=== PATIENT | female | born 1955 | race African-American/Black ===

== ENCOUNTER 2022-10-28 08:51 | Inpatient (IN) | payer MEDICARE, MEDICAID ==
[2022-10-28] VITALS (30 sets, daily range): BP systolic 22–158; BP diastolic 14–109
[~2022-10-28] VITALS: Ht 172.7 cm; Wt 129.3 kg
[~2022-10-28 08:51] MED LIST: ABILIFY PO; AMLO2.5T45 PO; ATOR20TA65 PO; BENADRYL PO; CYAN-50 PO; CYCLOBENZAPRINE; DEXT15DR5 EACHEYE; DILANTIN PO; FUROSEMIDE PO; IBUPROFEN; LOSARTAN PO; METF-414 PO; OMEPRAZOLE; PANT40TA51 PO; POTASSIUM PO; PYRI100T17 PO; XALAO EACHEYE; XALATAN
[2022-10-28] MEDS ORDERED: SODIUM CHLORIDE 0.9% 1000ML BAG (SEPSIS BOLUS) IV ONE (09:15)
[2022-10-28 09:57] LABS: HEMATOCRIT. 26.7 % (36.0-48.0); HEMOGLOBIN. 8.3 g/dL (12.0-16.0); MEAN CORPUSCULAR HEMOGLOBIN 19.4 pg (28.0-32.0); MEAN CORPUSCULAR VOLUME 62.5 fL (81.0-99.0); MEAN PLATELET VOLUME 8.3 fl (7.4-10.4); PLATELET 352 x1000/uL (130-400); RED BLOOD CELL COUNT 4.28 mill/uL (4.2-5.4); RED CELL DISTRIBUTION WIDTH 19.2 % (11.6-14.6)
[2022-10-28 09:58] LABS: CHLORIDE 102 mEq/L (98-107)
[2022-10-28 10:05] LABS: INR 1.1
[2022-10-28 10:54] LABS: PLATELET ESTIMATE NORMAL
[2022-10-28] MEDS ORDERED: PIPERACILLIN/TAZ 3.375G PREMIX 50 ML IV ONE (11:00)
[2022-10-28] MEDS ORDERED: VANCOMYCIN 1G PREMIX 200 ML IV ONE (11:00)
[2022-10-28] MEDS ORDERED: PIPERACILLIN/TAZOBACTAM 3.375G in DEXT 5% WATER 50ML IV NR (11:30)
[2022-10-28 12:43] LABS: CLARITY URINE CLOUDY (CLEAR); COLOR URINE DARK YELLOW (YELLOW); KETONES URINE NEGATIVE (NEGATIVE); LEUKOCYTE ESTERASE URINE 2+ (NEGATIVE); NITRITE URINE NEGATIVE (NEGATIVE); OCCULT BLOOD URINE 3+ (NEGATIVE); PROTEIN URINE 1+ (NEGATIVE); SPECIFIC GRAVITY URINE 1.019 (1.005-1.030)
[2022-10-28] MEDS ORDERED: DEXTROSE 50% WATER 50ML SYRINGE IV PRN (13:00)
[2022-10-28] MEDS ORDERED: VANCOMYCIN 1G PREMIX 200 ML IV SCH (13:00)
[2022-10-28] MEDS ORDERED: ONDANSETRON HCL 4MG/2ML INJ IV PRN (13:00)
[2022-10-28] MEDS ORDERED: ACETAMINOPHEN 325MG TABLET PO PRN (13:00)
[2022-10-28] MEDS ORDERED: IPRATROPIUM BROMIDE (0.02%) 0.5MG/2.5ML NEB HHN PRN (13:00)
[2022-10-28] MEDS ORDERED: NOREPINEPHRINE 8MG/250ML PMX 250 ML IV ONE (13:15)
[2022-10-28] MEDS ORDERED: NOREPINEPHRINE 8 MG in DEXTROSE 5% WATER 250 ML IV NR (13:30)
[2022-10-28] MEDS: DIGOXIN 500MCG/2ML AMP IV SCH ×2 (15:07→20:30)
[2022-10-28 15:21] LABS: BG BASE EXCESS -9.5 mmol/L (-2.0-2.0); BG CARBOXYHEMOGLOBIN 0.1 % (0.5-1.5); BG DEOXYHEMOGLOBIN 3.3 % (0.0-5.0); BG FRACTION INSPIRED OXYGEN 28; BG HCO3 ACT 14.3 mmol/L (22.0-26.0); BG METHEMOGLOBIN 0.3 % (0.0-1.5); BG OXYGEN SATURATION 96.7 % (92.0-98.5); BG OXYHEMOGLOBIN 96.3 % (94.0-97.0); BG PCO2 24.8 mmHg (35.0-45.0); BG PH 7.379 (7.350-7.450); BG PO2 98.7 mmHg (75.0-100.0); BG SAMPLE SITE LEFT RADIAL; BG TOTAL HEMOGLOBIN 9.3 g/dL (12.0-18.0); BG VENT MODE NASAL CANNULA
[2022-10-28] MEDS: PIPERACILLIN/TAZOBACTAM 3.375 G in DEXTROSE 5% WATER 50 ML IV SCH ×2 (16:00→23:56)
[2022-10-28] MEDS: BLOOD SUGAR DIAGNOSTIC STRIP TEST SCH ×3 (16:30→21:15)
[2022-10-28] MEDS ORDERED: DIGOXIN 500MCG/2ML AMP IV SCH (16:45)
[2022-10-28] MEDS: MIDODRINE HCL 5MG TABLET PO SCH (17:00)
[2022-10-28] MEDS: PHENYLEPHRINE 50 MG in DEXT 5% WATER 245 ML IV PRN ×2 (17:42→23:56)
[2022-10-28] MEDS: INSULIN LISPRO 100 UNITS/ML SUBCUT SCH ×3 (17:55→21:18)
[2022-10-28] MEDS ORDERED: METOPROLOL TARTRATE 5MG/5ML VIAL IV PRN (21:30)
[2022-10-28] MEDS ORDERED: AMIODARONE HCL 900 MG in DEXT 5% WATER 482 ML IV PRN (21:30)
[2022-10-28] MEDS: SODIUM CHLORIDE 0.9% 1,000 ML IV SCH (23:04)
[2022-10-29] VITALS (91 sets, daily range): BP systolic 64–132; BP diastolic 22–101
[2022-10-29 03:18] LABS: BG BASE EXCESS -5.1 mmol/L (-2.0-2.0); BG CARBOXYHEMOGLOBIN 0.5 % (0.5-1.5); BG DEOXYHEMOGLOBIN 2.7 % (0.0-5.0); BG FRACTION INSPIRED OXYGEN 28; BG HCO3 ACT 17.2 mmol/L (22.0-26.0); BG METHEMOGLOBIN 0.7 % (0.0-1.5); BG OXYGEN SATURATION 97.3 % (92.0-98.5); BG OXYHEMOGLOBIN 96.1 % (94.0-97.0); BG PCO2 22.9 mmHg (35.0-45.0); BG PH 7.494 (7.350-7.450); BG PO2 93.1 mmHg (75.0-100.0); BG SAMPLE SITE RIGHT RADIAL; BG TOTAL HEMOGLOBIN 8.2 g/dL (12.0-18.0); BG VENT MODE NASAL CANNULA
[2022-10-29 05:15] LABS: BASOPHILS % 0.1 % (0.0-2.0); EOSINOPHILS % 0.1 % (0.0-5.0); HEMATOCRIT. 22.9 % (36.0-48.0); HEMOGLOBIN. 7.4 g/dL (12.0-16.0); LYMPHOCYTES % 14.2 % (20.0-50.0); MEAN CORPUSCULAR HEMOGLOBIN 20.1 pg (28.0-32.0); MEAN PLATELET VOLUME 8.4 fl (7.4-10.4); MONOCYTES % 5.5 % (2.0-8.0); NEUTROPHILS % 80.1 % (40.0-76.0); PLATELET 339 x1000/uL (130-400); RED CELL DISTRIBUTION WIDTH 18.8 % (11.6-14.6)
[2022-10-29] MEDS: SODIUM CHLORIDE 0.9% 1,000 ML IV SCH ×2 (05:41→13:41)
[2022-10-29] MEDS: INSULIN LISPRO 100 UNITS/ML SUBCUT SCH ×4 (06:15→21:58)
[2022-10-29] MEDS: BLOOD SUGAR DIAGNOSTIC STRIP TEST SCH ×4 (06:18→21:52)
[2022-10-29] MEDS: PHENYLEPHRINE 50 MG in DEXT 5% WATER 245 ML IV PRN ×2 (07:15→19:11)
[2022-10-29] MEDS ORDERED: DIGOXIN 500MCG/2ML AMP IV PRN (08:15)
[2022-10-29] MEDS ORDERED: AMIODARONE HCL 150 MG in DEXT 5% WATER 100 ML IV SCH (09:00)
[2022-10-29] MEDS ORDERED: FUROSEMIDE 40MG/4ML VIAL IVP NR (09:30)
[2022-10-29] MEDS: PIPERACILLIN/TAZOBACTAM 3.375 G in DEXTROSE 5% WATER 50 ML IV SCH ×2 (09:33→13:36)
[2022-10-29] MEDS: MIDODRINE HCL 5MG TABLET PO SCH ×3 (09:34→18:43)
[2022-10-29] MEDS: AMIODARONE HCL 900 MG in DEXT 5% WATER 482 ML IV SCH (09:53)
[2022-10-29 11:22] LABS: TOTAL IRON BINDING CAPACITY 152 ug/dL (250-450)
[2022-10-29] MEDS: VANCOMYCIN 2,000 MG in DEXT 5% WATER 500 ML IV SCH ×2 (11:34→23:12)
[2022-10-29] MEDS: DIGOXIN 500MCG/2ML AMP IV SCH (17:53)
[2022-10-30] VITALS (100 sets, daily range): BP systolic 64–149; BP diastolic 33–97
[2022-10-30] MEDS: AMIODARONE HCL 900 MG in DEXT 5% WATER 482 ML IV SCH (00:40)
[2022-10-30] MEDS: PIPERACILLIN/TAZOBACTAM 3.375 G in DEXTROSE 5% WATER 50 ML IV SCH ×4 (02:28→21:49)
[2022-10-30] MEDS: SODIUM CHLORIDE 0.9% 1,000 ML IV SCH ×2 (02:29→16:48)
[2022-10-30 05:22] LABS: BASOPHILS % 0.2 % (0.0-2.0); LYMPHOCYTES % 17.5 % (20.0-50.0); MEAN CORPUSCULAR HEMOGLOBIN 19.6 pg (28.0-32.0); MEAN CORPUSCULAR VOLUME 63.5 fL (81.0-99.0); MEAN PLATELET VOLUME 7.5 fl (7.4-10.4); NEUTROPHILS % 76.3 % (40.0-76.0); PLATELET 284 x1000/uL (130-400); RED BLOOD CELL COUNT 3.46 mill/uL (4.2-5.4)
[2022-10-30] MEDS: BLOOD SUGAR DIAGNOSTIC STRIP TEST SCH ×4 (05:54→21:46)
[2022-10-30 05:56] LABS: DIGOXIN 1.2 ng/mL (0.9-2.0)
[2022-10-30] MEDS: INSULIN LISPRO 100 UNITS/ML SUBCUT SCH ×4 (06:07→21:50)
[2022-10-30 07:10] LABS: HEMOGLOBIN. 6.8 g/dL (12.0-16.0)
[2022-10-30] MEDS: MIDODRINE HCL 5MG TABLET PO SCH ×3 (09:27→17:04)
[2022-10-30 10:09] LABS: PLATELET ESTIMATE NORMAL
[2022-10-30] MEDS: AMIODARONE HCL 200 MG TABLET PO SCH ×2 (13:34→21:49)
[2022-10-30] MEDS: GUAIFENESIN 200MG/10ML SUGAR FREE UDC PO PRN ×2 (17:04→23:44)
[2022-10-30] MEDS ORDERED: PHENYLEPHRINE 50 MG in DEXT 5% WATER 245 ML IV PRN (17:32)
[2022-10-30] MEDS ORDERED: PHENYLEPHRINE 100 MG in DEXT 5% WATER 240 ML IV PRN (17:45)
[2022-10-30] MEDS: DIGOXIN 500MCG/2ML AMP IV SCH (18:06)
[2022-10-30] MEDS ORDERED: VANCOMYCIN 750MG PREMIX 150 ML IV SCH (20:00)
[2022-10-31] VITALS (75 sets, daily range): BP systolic 85–139; BP diastolic 36–100
[2022-10-31 05:31] LABS: HEMATOCRIT. 24.6 % (36.0-48.0); HEMOGLOBIN. 7.8 g/dL (12.0-16.0); MEAN CORPUSCULAR HEMOGLOBIN 20.9 pg (28.0-32.0); MEAN CORPUSCULAR VOLUME 65.9 fL (81.0-99.0); PLATELET 238 x1000/uL (130-400); RED BLOOD CELL COUNT 3.73 mill/uL (4.2-5.4); RED CELL DISTRIBUTION WIDTH 21.6 % (11.6-14.6)
[2022-10-31] MEDS: INSULIN LISPRO 100 UNITS/ML SUBCUT SCH ×4 (05:54→21:00)
[2022-10-31] MEDS: BLOOD SUGAR DIAGNOSTIC STRIP TEST SCH ×4 (05:54→21:13)
[2022-10-31] MEDS: PIPERACILLIN/TAZOBACTAM 3.375 G in DEXTROSE 5% WATER 50 ML IV SCH ×2 (05:54→13:59)
[2022-10-31] MEDS: SODIUM CHLORIDE 0.9% 1,000 ML IV SCH ×2 (05:55→21:07)
[2022-10-31 09:28] LABS: PLATELET ESTIMATE NORMAL
[2022-10-31] MEDS: AMIODARONE HCL 200 MG TABLET PO SCH ×2 (09:32→21:06)
[2022-10-31] MEDS: MIDODRINE HCL 5MG TABLET PO SCH ×3 (09:32→17:53)
[2022-10-31] MEDS: DIGOXIN 500MCG/2ML AMP IV SCH (17:53)
[2022-10-31] MEDS: GUAIFENESIN 200MG/10ML SUGAR FREE UDC PO PRN (17:53)
[2022-10-31] MEDS: CEFTRIAXONE 2GM DUPLEX 50 ML IV SCH (19:33)
[2022-11-01] VITALS (75 sets, daily range): BP systolic 98–147; BP diastolic 39–98
[2022-11-01] MEDS: SODIUM CHLORIDE 0.9% 1,000 ML IV SCH ×2 (07:53→22:15)
[2022-11-01] MEDS: AMIODARONE HCL 200 MG TABLET PO SCH ×2 (09:19→20:43)
[2022-11-01] MEDS: MIDODRINE HCL 5MG TABLET PO SCH ×3 (09:19→17:10)
[2022-11-01] MEDS: BLOOD SUGAR DIAGNOSTIC STRIP TEST SCH ×3 (11:27→20:44)
[2022-11-01] MEDS: INSULIN LISPRO 100 UNITS/ML SUBCUT SCH ×3 (11:28→20:44)
[2022-11-01] MEDS: FUROSEMIDE 40MG/4ML VIAL IVP SCH (15:21)
[2022-11-01] MEDS: DIGOXIN 500MCG/2ML AMP IV SCH (17:10)
[2022-11-01 17:56] LABS: HEMATOCRIT 23.7 % (36.0-48.0); HEMOGLOBIN 7.4 g/dL (12.0-16.0); MEAN CORPUSCULAR HEMOGLOBIN 20.8 pg (28.0-32.0); MEAN CORPUSCULAR VOLUME 66.8 fL (81.0-99.0); PLATELET 195 x1000/uL (130-400); RED BLOOD CELL COUNT 3.55 mill/uL (4.2-5.4); RED CELL DISTRIBUTION WIDTH 21.6 % (11.6-14.6)
[2022-11-01] MEDS: CEFTRIAXONE 2GM DUPLEX 50 ML IV SCH (20:49)
[2022-11-02] VITALS (15 sets, daily range): BP systolic 118–158; BP diastolic 51–74
[2022-11-02 05:35] LABS: HEMATOCRIT. 24.7 % (36.0-48.0); HEMOGLOBIN. 7.7 g/dL (12.0-16.0); MEAN CORPUSCULAR HEMOGLOBIN 20.9 pg (28.0-32.0); MEAN CORPUSCULAR VOLUME 67.1 fL (81.0-99.0); MEAN PLATELET VOLUME 7.3 fl (7.4-10.4); PLATELET 203 x1000/uL (130-400); RED BLOOD CELL COUNT 3.68 mill/uL (4.2-5.4); RED CELL DISTRIBUTION WIDTH 22.5 % (11.6-14.6)
[2022-11-02 05:49] LABS: CHLORIDE 114 mEq/L (98-107)
[2022-11-02] MEDS: BLOOD SUGAR DIAGNOSTIC STRIP TEST SCH ×4 (05:53→20:07)
[2022-11-02] MEDS: INSULIN LISPRO 100 UNITS/ML SUBCUT SCH ×4 (05:53→20:23)
[2022-11-02] MEDS: AMIODARONE HCL 200 MG TABLET PO SCH ×2 (08:28→20:21)
[2022-11-02] MEDS: FUROSEMIDE 40MG/4ML VIAL IVP SCH (08:28)
[2022-11-02] MEDS: MIDODRINE HCL 5MG TABLET PO SCH ×3 (09:00→17:24)
[2022-11-02] MEDS ORDERED: PNEUMOCOCCAL 23-VAL P-SAC VAC 0.5 ML IM ONE (10:30)
[2022-11-02] MEDS ORDERED: INFLUENZA VACCINE 05/PF 0.5 ML SYRINGE IM ONE (10:30)
[2022-11-02 10:58] LABS: PLATELET ESTIMATE NORMAL
[2022-11-02] MEDS: SODIUM CHLORIDE 0.9% 1,000 ML IV SCH (12:21)
[2022-11-02] MEDS: DIGOXIN 500MCG/2ML AMP IV SCH (18:34)
[2022-11-02] MEDS: CEFTRIAXONE 2GM DUPLEX 50 ML IV SCH (20:20)
[2022-11-03] VITALS (9 sets, daily range): BP systolic 111–146; BP diastolic 62–79
[2022-11-03 04:37] LABS: HEMATOCRIT. 24.9 % (36.0-48.0); HEMOGLOBIN. 7.8 g/dL (12.0-16.0); MEAN CORPUSCULAR HEMOGLOBIN 20.7 pg (28.0-32.0); MEAN CORPUSCULAR VOLUME 66.5 fL (81.0-99.0); MEAN PLATELET VOLUME 8.3 fl (7.4-10.4); PLATELET 209 x1000/uL (130-400); RED BLOOD CELL COUNT 3.75 mill/uL (4.2-5.4); RED CELL DISTRIBUTION WIDTH 21.8 % (11.6-14.6)
[2022-11-03 05:28] LABS: PLATELET ESTIMATE NORMAL
[2022-11-03] MEDS: BLOOD SUGAR DIAGNOSTIC STRIP TEST SCH ×4 (06:30→21:52)
[2022-11-03] MEDS: INSULIN LISPRO 100 UNITS/ML SUBCUT SCH ×4 (06:30→21:58)
[2022-11-03] MEDS: FUROSEMIDE 40MG/4ML VIAL IVP SCH (08:46)
[2022-11-03] MEDS: MIDODRINE HCL 5MG TABLET PO SCH ×3 (08:47→17:00)
[2022-11-03] MEDS: AMIODARONE HCL 200 MG TABLET PO SCH ×2 (08:47→21:52)
[2022-11-03] MEDS: DIGOXIN 500MCG/2ML AMP IV SCH (18:15)
[2022-11-03] MEDS: CEFTRIAXONE 2GM DUPLEX 50 ML IV SCH (22:27)
[2022-11-04] VITALS (8 sets, daily range): BP systolic 100–126; BP diastolic 68–99
[2022-11-04] MEDS: GUAIFENESIN 200MG/10ML SUGAR FREE UDC PO PRN (01:18)
[2022-11-04] MEDS ORDERED: IPRATROPIUM/ALBUTEROL 0.5-3(2.5)MG/3ML NEB HHN PRN (01:45)
[2022-11-04] MEDS ORDERED: IPRATROPIUM BROMIDE (0.02%) 0.5MG/2.5ML NEB HHN PRN (02:00)
[2022-11-04] MEDS ORDERED: ALBUTEROL (0.083%) 2.5MG/3ML NEB HHN PRN (02:00)
[2022-11-04] MEDS: BLOOD SUGAR DIAGNOSTIC STRIP TEST SCH ×4 (06:15→21:33)
[2022-11-04] MEDS: INSULIN LISPRO 100 UNITS/ML SUBCUT SCH ×4 (06:18→21:33)
[2022-11-04] MEDS: AMIODARONE HCL 200 MG TABLET PO SCH ×2 (09:37→21:31)
[2022-11-04] MEDS: FUROSEMIDE 40MG/4ML VIAL IVP SCH ×2 (09:38→17:32)
[2022-11-04] MEDS: MIDODRINE HCL 5MG TABLET PO SCH ×3 (09:38→17:32)
[2022-11-04 16:46] LABS: BASOPHILS % 0.3 % (0.0-2.0); HEMATOCRIT. 26.5 % (36.0-48.0); HEMOGLOBIN. 8.1 g/dL (12.0-16.0); LYMPHOCYTES % 11.9 % (20.0-50.0); MEAN CORPUSCULAR VOLUME 68.5 fL (81.0-99.0); MEAN PLATELET VOLUME 7.7 fl (7.4-10.4); MONOCYTES % 4.9 % (2.0-8.0); NEUTROPHILS % 82.9 % (40.0-76.0); PLATELET 238 x1000/uL (130-400); RED BLOOD CELL COUNT 3.87 mill/uL (4.2-5.4); RED CELL DISTRIBUTION WIDTH 21.9 % (11.6-14.6)
[2022-11-04 16:59] LABS: CHLORIDE 109 mEq/L (98-107)
[2022-11-04] MEDS: DIGOXIN 500MCG/2ML AMP IV SCH (17:17)
[2022-11-04] MEDS: CEFTRIAXONE 2GM DUPLEX 50 ML IV SCH (21:31)
[2022-11-05] VITALS (7 sets, daily range): BP systolic 95–127; BP diastolic 55–79
[2022-11-05 06:21] LABS: BASOPHILS % 0.3 % (0.0-2.0); HEMATOCRIT. 26.1 % (36.0-48.0); HEMOGLOBIN. 8.3 g/dL (12.0-16.0); LYMPHOCYTES % 14.5 % (20.0-50.0); MEAN CORPUSCULAR HEMOGLOBIN 21.3 pg (28.0-32.0); MEAN CORPUSCULAR VOLUME 66.6 fL (81.0-99.0); MEAN PLATELET VOLUME 8.3 fl (7.4-10.4); MONOCYTES % 4.7 % (2.0-8.0); NEUTROPHILS % 80.5 % (40.0-76.0); PLATELET 230 x1000/uL (130-400); RED BLOOD CELL COUNT 3.92 mill/uL (4.2-5.4); RED CELL DISTRIBUTION WIDTH 21.7 % (11.6-14.6)
[2022-11-05] MEDS: BLOOD SUGAR DIAGNOSTIC STRIP TEST SCH ×2 (06:36→11:40)
[2022-11-05] MEDS: FUROSEMIDE 40MG/4ML VIAL IVP SCH (08:43)
[2022-11-05] MEDS: MIDODRINE HCL 5MG TABLET PO SCH ×2 (08:43→13:55)
[2022-11-05] MEDS: AMIODARONE HCL 200 MG TABLET PO SCH (08:43)
[2022-11-05] MEDS: INSULIN LISPRO 100 UNITS/ML SUBCUT SCH ×2 (08:44→13:57)
[2022-11-05] MEDS ORDERED: LIDOCAINE HCL 1% 30ML VIAL (10MG/ML) ONE (10:19)
== END 2022-11-05 16:42 | DRG 871 ==
LOC: ER 08:51 → EDBEDREQTM 12:45 → EDBEDREQSVC 12:45 → EDBEDREQ 12:45 → MICUSO 15:24 → MICUNO 11-01 18:00 → 7EST 11-03 14:40
PROVIDERS: ADMIT Internal Medicine; ATTEND Internal Medicine
PROC: 30243N1 Transfusion of Nonautologous Red Blood Cells into Central Vein, Percutaneous Approach (ICD-10-PCS; 2022-10-30)
PROC: 5A1D70Z Performance of Urinary Filtration, Intermittent, Less than 6 Hours Per Day (ICD-10-PCS; 2022-11-02)
PROC: 5A09357 Assistance with Respiratory Ventilation, Less than 24 Consecutive Hours, Continuous Positive Airway Pressure (ICD-10-PCS; 2022-11-02)
PROC: B54NZZA Ultrasonography of Left Upper Extremity Veins, Guidance (ICD-10-PCS; principal; 2022-11-05)
PROC: 05HY33Z Insertion of Infusion Device into Upper Vein, Percutaneous Approach (ICD-10-PCS; 2022-11-05)
DX: A40.3 Sepsis due to Streptococcus pneumoniae (principal); E43 Unspecified severe protein-calorie malnutrition; R65.21 Severe sepsis with septic shock; G92.8 Other toxic encephalopathy; J15.4 Pneumonia due to other streptococci; N39.0 Urinary tract infection, site not specified; Z68.41 Body mass index [BMI] 40.0-44.9, adult; I13.0 Hypertensive heart and chronic kidney disease with heart failure and stage 1 through stage 4 chronic kidney disease, or unspecified chronic kidney disease; I50.30 Unspecified diastolic (congestive) heart failure; N17.9 Acute kidney failure, unspecified; I48.92 Unspecified atrial flutter; D68.9 Coagulation defect, unspecified; E87.20 Acidosis, unspecified; E78.00 Pure hypercholesterolemia, unspecified; Z20.822 Contact with and (suspected) exposure to COVID-19; R32 Unspecified urinary incontinence; R62.7 Adult failure to thrive; D50.9 Iron deficiency anemia, unspecified; E11.22 Type 2 diabetes mellitus with diabetic chronic kidney disease; E88.09 Other disorders of plasma-protein metabolism, not elsewhere classified; G40.909 Epilepsy, unspecified, not intractable, without status epilepticus; G47.33 Obstructive sleep apnea (adult) (pediatric); I48.0 Paroxysmal atrial fibrillation; N18.9 Chronic kidney disease, unspecified; Z90.710 Acquired absence of both cervix and uterus; Z79.4 Long term (current) use of insulin
CPT/HCPCS: 36415; 36573; 36600; 70551; 71045; 80048; 80053; 80162; 80202; 81003; 82140; 82375; 82728; 82805; 82962; 83036; 83540; 83550; 83605; 83735; 84145; 84443; 84484; 85025; 85027; 86850; 86900; 86920; 87070; 87077; 87186; 87426; 90686; 90732; 90935; 92610; 93005; 93306; 94640; 97162; 97166; 97530; 99291; A6261; C1725; C9803; J0282; J0696; J1160; J1815; J1940; J2370; J2405; J2543; J3370; J3490; J7030; J7060; P9016; A4315